=== PATIENT | male | born 1965 | race Caucasian/White ===

== ENCOUNTER → 2020-12-03 | Outpatient (CLI) | payer BC | LOC: EXRD 08:44 | DX: K76.0 Fatty (change of) liver, not elsewhere classified (principal) | CPT/HCPCS: 76700 ==

== ENCOUNTER → 2020-12-03 | Outpatient (CLI) | payer BC ==
[2020-12-03 11:16] LABS: HEMOGLOBIN 14.6 gm/dl (14.0-17.5); RED BLOOD COUNT 4.98 M/UL (4.20-5.50); WHITE BLOOD COUNT 6.5 K/UL (4.5-11.0)
[2020-12-03 11:47] LABS: BUN/CREATININE RATIO 13 (0-10)
== END ==
LOC: LAB 10:28
PROVIDERS: Internal Medicine
DX: Z12.5 Encounter for screening for malignant neoplasm of prostate (principal); K76.0 Fatty (change of) liver, not elsewhere classified; R94.5 Abnormal results of liver function studies; E78.5 Hyperlipidemia, unspecified; I10 Essential (primary) hypertension; E03.9 Hypothyroidism, unspecified; R73.01 Impaired fasting glucose; R74.8 Abnormal levels of other serum enzymes; Z79.899 Other long term (current) drug therapy
CPT/HCPCS: 80053; 80061; 82105; 83036; 84153; 84439; 84443; 85025

== ENCOUNTER → 2020-12-14 | Outpatient (CLI) | payer BC | LOC: RAD 13:16 | DX: M25.511 Pain in right shoulder (principal) | CPT/HCPCS: 73030 ==

== ENCOUNTER → 2021-01-09 | Outpatient (CLI) | payer BC | LOC: CT 07:16 | DX: K74.60 Unspecified cirrhosis of liver (principal); I10 Essential (primary) hypertension; H81.10 Benign paroxysmal vertigo, unspecified ear; E03.9 Hypothyroidism, unspecified; G62.9 Polyneuropathy, unspecified | CPT/HCPCS: 36415; 74170; 82565; Q9967 ==

== ENCOUNTER → 2021-02-19 | Outpatient (CLI) | payer BC | LOC: KOH-I 14:00 | DX: Z87.891 Personal history of nicotine dependence (principal) | CPT/HCPCS: 71271 ==

== ENCOUNTER → 2021-07-04 | Day surgery (SDC) | payer BC ==
[~2021-07-04] MED LIST: ACETAMINOPHEN-1 EAC1 PO; AMLODIPINE BESY10 MG PO; CYCLOBENZAPRINE10 MG PO; HYDROCHLOROTHIA25 MG PO; MECLIZINE HCL25 MG PO; MELOXICAM7.5 MG PO; METFORMIN HCL1000 MG PO; METOPROLOL TAR100 MG PO; VITAMIN C500 M4 PO; ZETIA10 MG PO; ZINC50 M1 PO
[2021-07-05 08:13] LABS: ALPHA-1-ANTITRYPSIN, SERUM 141 mg/dL (101-187); IMMUNOGLOBULIN G, QN, SERUM 1168 mg/dL (603-1613)
[2021-07-05 14:13] LABS: LIVER-KIDNEY MICROSOMAL AB 1.3 Units (0.0-20.0); MITOCHONDRIAL (M2) ANTIBODY <20.0 Units (0.0-20.0)
== END | disposition home or self-care (01) ==
LOC: OR 05:58
PROVIDERS: Internal Medicine Gastroenterology
DX: K25.9 Gastric ulcer, unspecified as acute or chronic, without hemorrhage or perforation (principal); K74.60 Unspecified cirrhosis of liver; K75.81 Nonalcoholic steatohepatitis (NASH); R94.5 Abnormal results of liver function studies; R16.0 Hepatomegaly, not elsewhere classified; I10 Essential (primary) hypertension; E78.5 Hyperlipidemia, unspecified; E11.9 Type 2 diabetes mellitus without complications; E03.9 Hypothyroidism, unspecified; E66.01 Morbid (severe) obesity due to excess calories; M10.9 Gout, unspecified; Z68.36 Body mass index [BMI] 36.0-36.9, adult; Z79.899 Other long term (current) drug therapy; Z20.822 Contact with and (suspected) exposure to COVID-19; Z87.891 Personal history of nicotine dependence
CPT/HCPCS: 36415; 82103; 82728; 82784; 82962; 83540; 83550; 86038; 86376; J2704; J3010; J7040

== ENCOUNTER → 2022-04-05 | Outpatient (CLI) | payer BC ==
[2022-04-05 12:59] LABS: HEMOGLOBIN 14.4 gm/dl (14.0-17.5); RED BLOOD COUNT 4.82 M/UL (4.20-5.50); WHITE BLOOD COUNT 6.4 K/UL (4.5-11.0)
[2022-04-05 13:24] LABS: BUN/CREATININE RATIO 19 (0-10)
== END ==
LOC: LAB 12:03
PROVIDERS: Internal Medicine
DX: Z12.5 Encounter for screening for malignant neoplasm of prostate (principal); M25.50 Pain in unspecified joint; K76.0 Fatty (change of) liver, not elsewhere classified; K74.60 Unspecified cirrhosis of liver; F17.200 Nicotine dependence, unspecified, uncomplicated; M19.031 Primary osteoarthritis, right wrist; M19.032 Primary osteoarthritis, left wrist
CPT/HCPCS: 36415; 73100; 73120; 80053; 80061; 82105; 83036; 84153; 84439; 84443; 85025; 85610; 85730

== ENCOUNTER → 2022-05-05 | Outpatient (CLI) | payer BC | LOC: EXRD 08:02 | DX: K74.60 Unspecified cirrhosis of liver (principal); I65.23 Occlusion and stenosis of bilateral carotid arteries; K76.0 Fatty (change of) liver, not elsewhere classified; I51.7 Cardiomegaly | CPT/HCPCS: 76700; 93306; 93880 ==